=== PATIENT | female | born 1995 | race Caucasian/White ===

== ENCOUNTER 2022-01-10 05:50 | Inpatient (IN) | payer OTHER ==
[2022-01-10 06:57] LABS: EPI CELLS 11 /uL (0-25.1); HYALINE CASTS 0 /uL (0-3.1); URINE APPEARANCE CLEAR; URINE BACTERIA 569 /uL (0-1359); URINE BILIRUBIN NEGATIVE (NEGATIVE); URINE COLOR YELLOW; URINE GLUCOSE (UA) NEGATIVE (NEGATIVE); URINE KETONE NEGATIVE (NEGATIVE); URINE LEUK ESTERASE 2+ (NEGATIVE); URINE NITRITE NEGATIVE (NEGATIVE); URINE PROTEIN 1+ (NEGATIVE); URINE RBC 54 /uL (0-23.9); URINE UROBILINOGEN 0.2 mg/dL (0.2-1.0); URINE WBC 304 /uL (0-25.8)
[2022-01-10] MEDS ORDERED: OXYTOCIN 20 UNITS in 0.9% NS 20 UNIT/1,000 ML INFUS.BAG IV ONE (06:57)
[2022-01-10] MEDS ORDERED: LIDOCAINE HCL 1% PRESERVATIVE FREE - 30ML VIAL ONE (06:57)
[2022-01-10 07:00] LABS: BASO % 0.3 % (0-2.0); EOS % 0.4 % (0-4.5); HEMATOCRIT 36.2 % (32.4-45.2); HEMOGLOBIN 11.7 GM/dL (10.7-15.3); LYMPH % 13.1 % (8-40); MCH 28.5 pg (25.7-33.7); MCHC 32.4 g/dl (32.0-36.0); MEAN PLT VOLUME 8.2 fl (7.5-11.1); MONO % 5.6 % (3.8-10.2); NEUT % 80.6 % (42.8-82.8); PLATELET COUNT 154 10^3/uL (134-434); RBC 4.12 M/mm3 (3.60-5.2); RDW 16.7 % (11.6-15.6); WHITE BLOOD COUNT 9.2 K/mm3 (4.0-10.0)
[2022-01-10 07:02] VITALS: BMI 37.5
[2022-01-10 07:07] LABS: INR 0.95 (0.83-1.09); PROTHROMBIN TIME (PATIENT) 10.9 SEC (9.7-13.0)
[2022-01-10 07:10] LABS: ACTIVATED PTT 26.3 SECONDS (25.2-36.5); CALCIUM 8.3 mg/dL (8.5-10.1)
[2022-01-10 07:11] LABS: BLOOD UREA NITROGEN 5.1 mg/dL (7-18)
[2022-01-10 07:14] LABS: CREATININE 0.4 mg/dL (0.55-1.3)
[2022-01-10] MEDS ORDERED: ELECTROLYTE-148 SOLN 1,000 ML IV SCH (07:15)
[2022-01-10] MEDS: IBUPROFEN 600 MG TABLET (FP) PO PRN ×2 (07:35→18:06)
[2022-01-10] MEDS ORDERED: OXYTOCIN 30 UNITS in 0.9% NS 30 UNIT/500 ML INFUS.BAG IVPB SCH (07:45)
[2022-01-10] MEDS ORDERED: BISACODYL 10 MG SUPP.RECT RC PRN (08:11)
[2022-01-10] MEDS ORDERED: BENZOCAINE 28 GM HEMORRHOIDAL OINTMENT TP PRN (08:11)
[2022-01-10] MEDS ORDERED: ACETAMINOPHEN 325 MG TABLET (FP) PO PRN (08:11)
[2022-01-10] MEDS ORDERED: oxyCODONE HCL 5 MG TABLET PO PRN (08:11)
[2022-01-10] MEDS ORDERED: METHYLERGONOVINE MALEATE 0.2 MG/1 ML AMP IM PRN (08:11)
[2022-01-10] MEDS ORDERED: BENZOCAINE 20% 57 GM BOTTLE TP PRN (08:11)
[2022-01-10] MEDS ORDERED: WITCH HAZEL 50% (TUCKS) 40 PAD/JAR PAD TP PRN (08:11)
[2022-01-10] MEDS ORDERED: OXYTOCIN 20 UNITS in 0.9% NS 20 UNIT/1,000 ML INFUS.BAG IV SCH (08:15)
[2022-01-10] MEDS ORDERED: IBUPROFEN 600 MG TABLET (FP) PO ONE (08:40)
[2022-01-10 09:00] LABS: CORD BASE EXCESS -2.8 mmol/L (0-2); CORD HCO3 23.1 mmHg (20-29); CORD PCO2 44.4 mmHg (30-78); CORD pH 7.335 (7.14-7.44)
[2022-01-10 09:03] LABS: CORD HCO3 23.6 mmHg (20-29); CORD PCO2 57.2 mmHg (30-78); CORD pH 7.234 (7.14-7.44)
[2022-01-10] MEDS ORDERED: PRENATAL VITAMINS W/ FOLIC ACID TABLET (FP) PO ONE (09:49)
[2022-01-10] MEDS: PRENATAL VITAMINS W/ FOLIC ACID TABLET (FP) PO SCH (09:59)
[2022-01-11] MEDS: IBUPROFEN 600 MG TABLET (FP) PO PRN ×2 (08:15→18:12)
[2022-01-11 09:19] LABS: BASO % 0.5 % (0-2.0); EOS % 0.5 % (0-4.5); HEMATOCRIT 31.1 % (32.4-45.2); HEMOGLOBIN 10.1 GM/dL (10.7-15.3); LYMPH % 22.2 % (8-40); MCH 28.5 pg (25.7-33.7); MCHC 32.3 g/dl (32.0-36.0); MEAN CELL VOLUME 88.2 fl (80-96); MEAN PLT VOLUME 8.3 fl (7.5-11.1); MONO % 6.6 % (3.8-10.2); NEUT % 70.2 % (42.8-82.8); PLATELET COUNT 150 10^3/uL (134-434); RBC 3.53 M/mm3 (3.60-5.2); RDW 16.3 % (11.6-15.6); WHITE BLOOD COUNT 7.4 K/mm3 (4.0-10.0)
[2022-01-11] MEDS: PRENATAL VITAMINS W/ FOLIC ACID TABLET (FP) PO SCH (09:56)
[2022-01-11] MEDS ORDERED: SENNOSIDES/DOCUSATE COMBO (SENNA PLUS) TABLET (UD) PO PRN (22:00)
[2022-01-12] MEDS: IBUPROFEN 600 MG TABLET (FP) PO PRN (06:17)
[2022-01-12] MEDS: PRENATAL VITAMINS W/ FOLIC ACID TABLET (FP) PO SCH (10:42)
[2022-01-12 11:18] VITALS: BP 106/67; PULSE 73; RESP 17; TEMP 97.8
== END 2022-01-12 12:40 | disposition home or self-care (01) | DRG 560 ==
LOC: JDEL 05:50 → JLDR 06:10 → J3W 10:15
PROVIDERS: ADMIT Obstetrics & Gynecology; ATTEND Obstetrics & Gynecology
PROC: 10E0XZZ Delivery of Products of Conception, External Approach (ICD-10-PCS; principal; 2022-01-10)
DX: O24.420 Gestational diabetes mellitus in childbirth, diet controlled (principal); Z3A.38 38 weeks gestation of pregnancy; Z37.0 Single live birth
CPT/HCPCS: 36415; 36600; 59409; 80048; 81003; 82803; 82962; 85025; 85610; 85730; 86780; 86850; 86900; 86901; C9803-CS; U0003; U0005